=== PATIENT | male | born 1980 | race Caucasian/White ===

== ENCOUNTER → 2017-06-21 | Outpatient (CLI) | payer OTHER ==
[~2017-06-21] MED LIST: PRILOSEC10 M1 PO; SINCALIDE 3 MCG/VIAL INJ ONE
--- NOTE | 2017-06-21 11:47 | Diagnostic Imaging Report ---
PROCEDURE:GALLBLADDER ULTRASOUND COMPARISON:None. INDICATIONS:Abdomen Pain FINDINGS: Liver: 15.8 cm. Normal hepatic parenchymal echogenicity. No focal mass. Main portal vein: 1.3 cm. Hepatopedal flow. Gallbladder: No echogenic calculi, gallbladder wall thickening, or pericholecystic fluid. 0.3 cm echogenic focus in the anterior gallbladder wall without acoustic shadowing. 0.3 cm echogenic focus in the dependent gallbladder wall, best visualized in the decubitus position. Common Bile Duct: 3.0 mm. No echogenic filling defect. Sonographic Vasquez's sign: Negative. Right kidney: 12.4 cm. No solid or cystic mass, echogenic calculi, or hydronephrosis. Normal parenchymal echogenicity. The pancreas, inferior vena cava, and aorta were insufficiently visualized, secondary to overlying bowel gas. Ascites: None. CONCLUSION: 1. No acute sonographic abnormality. 2. Gallbladder polyps. Dictated by: Rafael Araya M.D. on 06/21/2017 at 11:48 Electronically approved by: Rafael Araya M.D. on 06/21/2017 at 11:48
--- NOTE | 2017-06-21 18:39 | Diagnostic Imaging Report ---
Hepatobiliary Scan with Gallbladder Ejection Fraction Clinical information: Abdominal pain. Report: Following intravenous administration of 6.4 millicuries of Tc-99m mebrofenin, dynamic images of the abdomen in the anterior projection were obtained through 30 minutes. Sincalide (CCK analog) 2.2 micrograms was administered intravenously over 30 minutes with additional imaging for determination of gallbladder ejection fraction. Perfusion to the liver is normal. Extraction of tracer from the blood pool by the liver parenchyma is normal. Tracer is seen promptly within the biliary tract. The gallbladder begins to fill by 10 minutes post-injection of tracer and fills adequately. Tracer is seen in the small bowel by 47 minutes. The gallbladder ejection fraction with administration of sincalide is 76% (normal greater than 40%). Impression: 1. Filling of the gallbladder excludes the diagnosis of acute cystic duct obstruction/acute cholecystitis. 2. Normal gallbladder ejection fraction of 76% does not support the clinical diagnosis of chronic cholecystitis/gallbladder dyskinesia. Signed by: Dr. Moisés Myers MD on 06/21/2017 6:35 PM
== END ==
LOC: US 08:22
PROVIDERS: ATTEND Internal Medicine Gastroenterology
DX: R10.9 Unspecified abdominal pain (principal)
CPT/HCPCS: 76705; 78227; A9537; J2805

== ENCOUNTER → 2018-02-04 | Day surgery (SDC) | payer OTHER ==
[~2018-02-04] MED LIST changes: +FENTANYL CITRATE/PF 100MCG/2 ML INJ ONE; +HYOSCYAMINE SULFATE 0.5 MG/ML INJ ONE; +KETAMINE HCL INJ 50 MG/ML 10 ML VIAL ONE; +MIDAZOLAM HCL 2 MG/2 ML VIAL ONE; +MULTI-VITAMIN1 EACH PO; +PANTOPRAZOLE SO40 MG PO; +PROPOFOL IV EMULSION 10 MG/ML 50 ML VIAL ONE; -SINCALIDE 3 MCG/VIAL INJ ONE; +ZOFRAN8 MG PO
--- OUTSIDE RECORDS SUMMARY | 2018-02-04 13:26 | XMS REPORT ---
Author Author [facility] Address Unknown Phone Unavailable Care Team Providers Care Industrial Eng Name Role Phone LACEY BENNETT Unavailable Unavailable Problems This patient has no known problems. Allergies, Adverse Reactions, Alerts This patient has no known allergies or adverse reactions. Medications This patient has no known medications. Results Test Description Test Time Test Comments Text Results Atomic Results Result Comments GALLBLADDER [place] [address] Patient Name: SAPPHIRE MILLER MR #: [id number] : 1980 Age/Sex: 36/M Req #: [id number] Adm Physician: Ordered by: LACEY BENNETT MD Report #: [id number] Location: US Room/Bed: Procedure: [id number] US/US GALLBLADDER Exam Date: 06/21/17 Exam Time: 908 REPORT STATUS: Signed PROCEDURE: GALLBLADDER ULTRASOUND COMPARISON: None. INDICATIONS: Abdomen Pain FINDINGS: Liver: 15.8 cm. Normal hepatic parenchymal echogenicity. No focal mass. Main portal vein: 1.3 cm. Hepatopedal flow. Gallbladder: No echogenic calculi, gallbladder wall thickening, or pericholecystic fluid. 0.3 cm echogenic focus in the anterior gallbladder wall without acoustic shadowing. 0.3 cm echogenic focus in the dependent gallbladder wall, best visualized in the decubitus position. Common Bile Duct: 3.0 mm. No echogenic filling defect. Sonographic Vasquez's sign: Negative. Right kidney: 12.4 cm. No solid or cystic mass, echogenic calculi, or hydronephrosis. Normal parenchymal echogenicity. The pancreas, inferior vena cava, and aorta were insufficiently visualized, secon micheal to overlying bowel gas. Ascites: None. CONCLUSION: 1. No acute sonographic abnormality. 2. Gallbladder polyps. Dictated by: Rossana Pope M.D. on 06/21/2017 at 11:48 Electronically approved by: Rossana Pope M.D. on 06/21/2017 at 11:48 Dictated By: ROSSANA POPE MD [id number] Transcribed By: ANIBAL on 06/21/17 1148 COPY TO: LACEY BENNETT MD HEPTOBILIARY W PHARM [place] [address] Patient Name: SAPPHIRE MILLER MR #: [id number] : 1980 Age/Sex: 36/M Req #: [id number] Adm Physician: Ordered by: LACEY BENNETT MD Report #: [id number] Location: Room/Bed: Procedure: [id number] NM/HEPTOBILIARY W PHARM Exam Date: 06/21/17 Exam Time: 1015 REPORT STATUS: Signed Hepatobiliary Scan with Gallbladder Ejection Fraction Clinical information: Abdominal pain. Report: Following intravenous administration of 6.4 millicuries of Tc-99m mebrofenin, dynamic images of the abdomen in the anterior projection were obtained through 30 minutes. Sincalide (CCK analog) 2.2 micrograms was administered intravenously over 30 minutes with additional imaging for determination of gallbladder ejection fraction. Perfusion to the liver is normal. Extraction of tracer from the blood pool by the liver parenchyma is normal. Tracer is seen promptly within the biliary tract. The gallbladder begins to fill by 10 minutes post-injection of tracer and fills adequately. Tracer is seen in the small bowel by 47 minutes. The gallbladder ejection fraction with administration of sincalide is 76% (normal greater than 40%). Impression: 1. Filling of the gallbladder excludes the diagnosis of acute cystic duct obstruction/acute cholecystitis. 2. Normal gallbladder ejection fraction of 76% does not support the clinical diagnosis of chronic cholecystitis/gallbladder dyskinesia. Signed by: Dr. Moisés Montiel MD on 06/21/2017 6:35 PM Dictated By: MOISÉS MONTIEL MD Electr onically Signed By: MOISÉS MONTIEL MD on 06/21/171834 Transcribed By: MARGARITO on 06/21/171834 COPY TO: LACEY BENNETT MD
[2018-02-04 17:05] VITALS: BP 111/78
--- NOTE | 2018-02-04 17:58 | Operative Report ---
DATE OF PROCEDURE: February 04, 2018 REFERRING PHYSICIAN: Dr. Ilan Meyer DO. PROCEDURES PERFORMED 1. Esophagogastroduodenoscopy with esophageal dilatation and pyloric channel dilatation. 2. Colonoscopy. INDICATIONS FOR ESOPHAGOGASTRODUODENOSCOPY: Dysphagia to solids, bloating. INDICATIONS FOR COLONOSCOPY: Change of bowel habits, new onset constipation. MEDICATION: Patient was done under MAC. Please see anesthesiologist's note. PROCEDURE: With the patient in left lateral decubitus position, a flexible fiberoptic Olympus gastroscope was introduced into the esophagus under direct visualization without any difficulty. There was some patchy erythema noted in distal esophagus. The scope was then advanced with ease into the stomach and the mucosa overlying the antrum and the body revealed some patchy erythema and [id number] edema and biopsies were obtained and sent to stain for H. pylori. The pylorus was stenotic and was dilated to size 20 mm per TTS balloon dilators. The scope was then advanced with ease all the way to the 2nd portion of the duodenum. The scope was then withdrawn slowly. Mucosa overlying the proximal 2nd portion and the duodenal bulb appeared to be within normal limits. The scope was then withdrawn back into the stomach and retroflexed and mucosa overlying the fundus and the cardia appeared to be within normal limits. The scope was then straightened out. The stomach was decompressed. The scope was subsequently withdrawn. Patient tolerated the procedure well. IMPRESSION 1. Mild distal esophagitis. 2. Esophageal stricture dilated to size 52-[place] Avalos. 3. Gastritis biopsied. Biopsies sent to stain for Helicobacter pylori. 4. Pyloric channel stricture dilated to size 20 mm per TTS balloon dilators. PLAN: Follow up histology. Increase Protonix to 40 mg 1 p.o. a.c. b.i.d. and q.h.s. PROCEDURE FOR COLONOSCOPY: The patient was then turned around and after adequate lubrication of the anal canal, a flexible fiberoptic Olympus colonoscope was inserted into the rectum with ease and advanced all way to the cecum. It was then withdrawn slowly and the mucosa overlying the cecum, ascending colon, transverse, descending, sigmoid, and rectum appeared to be within normal limits. The scope was then retroflexed into the distal rectum and moderate-size internal hemorrhoids were noted, none of which was actively bleeding. The scope was then straightened out. It was subsequently withdrawn. Patient tolerated the procedure well. IMPRESSION: Internal hemorrhoids, none actively bleeding. PLAN: Initiate high-fiber, low-fat diet. Initiate high-fiber supplement. Start VSL #3 one p.o. daily. Job#: [id number] VAS cc:ILAN MEYER DO
[2018-02-04 18:05] LABS: ALBUMIN 4.7 g/dL (3.5-5.0); BILIRUBIN,DIRECT 0.3 mg/dL (0.0-0.5)
== END | disposition home or self-care (01) ==
LOC: ENDO 13:24
PROVIDERS: ATTEND Internal Medicine Gastroenterology
DX: K22.2 Esophageal obstruction (principal); K29.70 Gastritis, unspecified, without bleeding; K31.1 Adult hypertrophic pyloric stenosis; K20.8 Other esophagitis; K59.00 Constipation, unspecified; K21.9 Gastro-esophageal reflux disease without esophagitis; K64.8 Other hemorrhoids; F41.9 Anxiety disorder, unspecified; Z68.30 Body mass index [BMI] 30.0-30.9, adult; Z87.891 Personal history of nicotine dependence
CPT/HCPCS: 36415; 43239; 43245; 43450; 45378; 80076; C1726; J1980; J2250

== ENCOUNTER → 2018-09-23 | Outpatient (CLI) | payer BC ==
[~2018-09-23] MED LIST changes: +DIATRIZOATE MEGL/DIATRIZOA SOD 30 ML BTL PO ONE; -FENTANYL CITRATE/PF 100MCG/2 ML INJ ONE; -HYOSCYAMINE SULFATE 0.5 MG/ML INJ ONE; +IOPAMIDOL 370 MG/ML 200 ML INFUS..BTL INJ ONE; -KETAMINE HCL INJ 50 MG/ML 10 ML VIAL ONE; -MIDAZOLAM HCL 2 MG/2 ML VIAL ONE; -PROPOFOL IV EMULSION 10 MG/ML 50 ML VIAL ONE; +SODIUM CHLORIDE 0.9% 50ML 50 ML ONE
--- NOTE | 2018-09-23 10:38 | Diagnostic Imaging Report ---
EXAM: CT Abdomen and Pelvis WITH intravenous contrast INDICATION: Abdominal pain COMPARISON: Right upper quadrant ultrasound of 06/21/2017 TECHNIQUE: Abdomen and pelvis were scanned utilizing a multidetector helical scanner from the lung base to the pubic symphysis after administration of IV contrast. Coronal and sagittal reformations were obtained. Routine protocol was performed. Scan was performed when during portal venous phase. IV CONTRAST: 100mL of Isovue 370 ORAL CONTRAST: Gastrografin COMPLICATIONS: None RADIATION DOSE: Total DLP: 700.7 mGy*cm Dose modulation, iterative reconstruction, and/or weight based adjustment of the mA/kV was utilized to reduce the radiation dose to as low as reasonably achievable. FINDINGS: LOWER THORAX: Mild bibasilar dependent subsegmental atelectasis. No focal consolidation. The heart is not enlarged. HEPATOBILIARY: No focal hepatic lesions. No biliary ductal dilatation. The gallbladder appears unremarkable. SPLEEN: No splenomegaly. PANCREAS: No focal masses or ductal dilatation. ADRENALS: No adrenal nodules. KIDNEYS/URETERS: No hydronephrosis. 2 cm cyst in the right kidney. 4 mm nonobstructing calculus at the right lower pole. PELVIC ORGANS/BLADDER: Coarse calcifications within the nonenlarged prostate. Bladder is decompressed. PERITONEUM / RETROPERITONEUM: No free air or fluid. LYMPH NODES: No lymphadenopathy. VESSELS: Unremarkable. GI TRACT: Sigmoid colonic diverticulosis with no CT evidence of diverticulitis. Normal bowel thickening or bowel distention. BONES AND SOFT TISSUES: Mild degenerative changes of the lower lumbar spine. Minimal retrolisthesis at L5-S1. IMPRESSION: 4 mm right lower pole nonobstructing renal calculus. Otherwise, no acute findings in the abdomen or pelvis. Signed by: Maegan Kruger MD on 09/23/2018 10:34 AM
== END ==
LOC: CT 08:36
PROVIDERS: ATTEND Internal Medicine Gastroenterology
DX: R10.9 Unspecified abdominal pain (principal)
CPT/HCPCS: 74177; Q9967

== ENCOUNTER → 2020-04-12 | Day surgery (SDC) | payer BC ==
[~2020-04-12] MED LIST changes: -DIATRIZOATE MEGL/DIATRIZOA SOD 30 ML BTL PO ONE; +DICYCLOMINE HCL20 MG PO; +FENTANYL CITRATE/PF 100MCG/2 ML INJ ONE; -IOPAMIDOL 370 MG/ML 200 ML INFUS..BTL INJ ONE; +LIDOCAINE HCL 2% LOCAL INJ 5 ML SDV VIAL INJ ONE; +MIDAZOLAM HCL 2 MG/2 ML VIAL ONE; +PANTOPRAZOLE 40 MG 10ML VIAL ONE; +PROPOFOL IV EMULSION 10 MG/ML 20 ML VIAL ONE; -SODIUM CHLORIDE 0.9% 50ML 50 ML ONE
[2020-04-12 08:55] VITALS: BP 124/81
== END | disposition home or self-care (01) ==
LOC: OR 05:47
PROVIDERS: ATTEND Internal Medicine Gastroenterology
DX: K22.2 Esophageal obstruction (principal); K31.7 Polyp of stomach and duodenum; K29.70 Gastritis, unspecified, without bleeding; K31.1 Adult hypertrophic pyloric stenosis; K22.8 Other specified diseases of esophagus; K21.9 Gastro-esophageal reflux disease without esophagitis; Z01.812 Encounter for preprocedural laboratory examination; Z20.822 Contact with and (suspected) exposure to COVID-19; Z87.891 Personal history of nicotine dependence
CPT/HCPCS: 43239; 43450; C9113; J2001; J2250; J2704; J3010; U0002

== ENCOUNTER 2020-08-29 05:27 | Observation (INO) | payer BC ==
[2020-08-28 09:33] LABS: BASOPHILS % 0.5 % (0.0-1.0); EOSINOPHILS # (AUTO) 0.1 (0.0-0.4); EOSINOPHILS % 0.9 % (0.0-6.0); HEMATOCRIT 46.5 % (38.2-49.6); HEMOGLOBIN 15.2 g/dL (14.0-18.0); LYMPHOCYTES # (AUTO) 2.2 (1.0-3.2); LYMPHOCYTES % 25.5 % (18.0-39.1); MEAN CORPUSCULAR HEMOGLOBIN 29.4 pg (28-32); MEAN CORPUSCULAR HGB CONC 32.7 g/dL (31-35); MEAN CORPUSCULAR VOLUME 89.9 fL (81-99); MONOCYTES # (AUTO) 1.2 (0.2-0.8); MONOCYTES % 13.7 % (4.4-11.3); NEUTROPHILS # (AUTO) 5.1 (2.1-6.9); NEUTROPHILS % 58.5 % (38.7-80.0); PLATELET COUNT 264 x10e3/uL (140-360); RED BLOOD COUNT 5.17 x10e6/uL (4.3-5.7); RED CELL DISTRIBUTION WIDTH 13.2 % (11.7-14.4)
[2020-08-28 10:11] LABS: ANION GAP 12.7 mmol/L (8-16); CALCIUM 9.1 mg/dL (8.4-10.2); CREATININE, SERUM 1.17 mg/dL (0.72-1.25); POTASSIUM 3.7 mmol/L (3.5-5.1)
[2020-08-28 10:18] LABS: INR 0.9; PROTHROMBIN TIME 12.7 seconds (11.9-14.5)
[2020-08-28 10:19] LABS: PARTIAL THROMBOPLASTIN TIME 29.6 seconds (23.8-35.5)
[~2020-08-29] VITALS: Ht 188 cm; Wt 106.1 kg
[~2020-08-29 05:27] MED LIST changes: +DICLOFENAC POTA50 MG PO; -FENTANYL CITRATE/PF 100MCG/2 ML INJ ONE; -LIDOCAINE HCL 2% LOCAL INJ 5 ML SDV VIAL INJ ONE; +MEDROL4 MG PO; -MIDAZOLAM HCL 2 MG/2 ML VIAL ONE; +NEURONTIN100 MG PO; -PANTOPRAZOLE 40 MG 10ML VIAL ONE; -PROPOFOL IV EMULSION 10 MG/ML 20 ML VIAL ONE; +ULTRAM50 MG PO
[2020-08-29] MEDS ORDERED: SODIUM CHLORIDE 0.9% 50ML 100 ML ONE (06:03)
[2020-08-29] MEDS ORDERED: THROMBIN FOR SOLN 5,000 UNIT VIAL ONE (06:47)
[2020-08-29] MEDS ORDERED: LIDOCAINE 1% W/EPINEPHRINE 20 ML VIAL ONE (06:47)
[2020-08-29] MEDS ORDERED: Vancomycin IV 1 GM VIAL ONE (07:25)
[2020-08-29] MEDS ORDERED: ACETAMINOPHEN 1000 MG/100 ML 100 ML IV ONE (08:18)
[2020-08-29] MEDS ORDERED: ACETAMINOPHEN 1000 MG/100 ML 0 ML IV ONE (08:18)
[2020-08-29] MEDS ORDERED: OXYCODONE/ACETAMINOPHEN 5-325 1 EACH TABLET PO PRN (09:00)
[2020-08-29] MEDS ORDERED: MAGNESIUM/ALUMINUM/SIMETHICONE 30 ML UDC PO PRN (09:00)
[2020-08-29] MEDS ORDERED: LACTATED RINGER'S 1,000 ML IV SCH (09:00)
[2020-08-29] MEDS ORDERED: DICYCLOMINE HCL 20 MG TAB PO SCH (09:00)
[2020-08-29] MEDS ORDERED: ONDANSETRON HCL INJ 2MG/ML 2ML 2 MG/ML VIAL IV PRN (09:00)
[2020-08-29] MEDS ORDERED: ZOLPIDEM TARTRATE 5 MG TAB PO PRN (09:00)
[2020-08-29] MEDS ORDERED: HYDROMORPHONE 2MG/ML 2 MG/ML ML IV PRN (09:00)
[2020-08-29] MEDS ORDERED: ACETAMINOPHEN 325 MG TAB PO PRN (09:00)
[2020-08-29] MEDS ORDERED: PROMETHAZINE HCL (IM) 25 MG/ML VIAL IM PRN (09:00)
[2020-08-29] MEDS ORDERED: HYDROCODON-ACE1 EA12 PO (09:02)
[2020-08-29] MEDS ORDERED: FENTANYL CITRATE/PF 100MCG/2 ML INJ ONE ×2 (09:35→12:09)
[2020-08-29] MEDS: CARISOPRODOL 350 MG TAB PO PRN ×2 (10:11→15:06)
[2020-08-29 10:45] VITALS: BP 127/86
[2020-08-29] MEDS ORDERED: MORPHINE SULFATE INJ 4 MG/ML INJ 1ML IM PRN (10:45)
[2020-08-29 10:50] VITALS: BP 127/86
[2020-08-29 11:30] VITALS: BP 136/93
[2020-08-29] MEDS ORDERED: MORPHINE SULFATE INJ 10 MG/ML ONE (12:09)
[2020-08-29] MEDS ORDERED: MIDAZOLAM HCL 2 MG/2 ML VIAL ONE (12:09)
[2020-08-29] MEDS ORDERED: GABAPENTIN 100 MG CAP PO SCH (13:00)
[2020-08-29] MEDS ORDERED: Cefazolin 1 GM in SODIUM CHLORIDE 0.9% 50ML 50 ML IV SCH (14:00)
[2020-08-29] MEDS ORDERED: DEXAMETHASONE SOD PHOS INJ 4 MG/ML VIAL ONE (16:30)
[2020-08-29] MEDS ORDERED: ROCURONIUM BROMIDE 10 MG/ML 5ML VIAL IV ONE (16:30)
[2020-08-29] MEDS ORDERED: ONDANSETRON HCL INJ 2MG/ML 2ML 2 MG/ML VIAL ONE (16:30)
[2020-08-29] MEDS ORDERED: POVIDONE IODINE 0.05% 0.05 % ML PO ONE (16:30)
[2020-08-29] MEDS ORDERED: SEVOFLURANE INHAL SOLN 250 ML PEN BTL ONE (16:30)
[2020-08-29] MEDS ORDERED: NEOSTIGMINE 1 MG/ML 10ML VIAL ONE (16:30)
[2020-08-29] MEDS ORDERED: GLYCOPYRROLATE INJ 0.2 MG/ML VIAL ONE (16:30)
[2020-08-29] MEDS ORDERED: PROPOFOL IV EMULSION 10 MG/ML 20 ML VIAL ONE (16:30)
[2020-08-29] MEDS ORDERED: LIDOCAINE HCL 2% LOCAL INJ 5 ML SDV VIAL INJ ONE (16:30)
[2020-08-30] MEDS ORDERED: PANTOPRAZOLE SOD 40 MG TABEC PO SCH (07:30)
== END 2020-08-29 15:00 | disposition home or self-care (01) ==
LOC: OR 05:27 → PACU V 08:59 → MED/SURG 10:00
PROVIDERS: ADMIT Neurological Surgery; ATTEND Neurological Surgery
DX: M50.123 Cervical disc disorder at C6-C7 level with radiculopathy (principal); Z01.810 Encounter for preprocedural cardiovascular examination; Z01.812 Encounter for preprocedural laboratory examination; Z01.818 Encounter for other preprocedural examination; Z20.822 Contact with and (suspected) exposure to COVID-19
CPT/HCPCS: 20931; 22551; 22845; 36415; 71046; 77003; 80048; 85025; 85610; 85730; 86850; 86900; 88304; 88311; 93005; C1713 ×2; C9359; G0378; J0131; J0690; J1100; J1170; J2001; J2270; J2405; J2704; J2710; J3010; J3370; U0002; J2250

== ENCOUNTER → 2020-09-27 | Outpatient (CLI) | payer BC ==
[~2020-09-27] MED LIST changes: +HYDROCODON-ACE1 EA12 PO
== END ==
LOC: RAD 08:08
PROVIDERS: ATTEND Neurological Surgery
DX: M50.20 Other cervical disc displacement, unspecified cervical region (principal); M43.22 Fusion of spine, cervical region
CPT/HCPCS: 72050

== ENCOUNTER → 2021-04-04 | Outpatient (CLI) | payer BC | LOC: RAD 07:46 | PROVIDERS: ATTEND Neurological Surgery | DX: M50.20 Other cervical disc displacement, unspecified cervical region (principal); M43.22 Fusion of spine, cervical region | CPT/HCPCS: 72050 ==

== ENCOUNTER → 2022-06-16 | Outpatient (CLI) | payer BC | LOC: US 09:56 | PROVIDERS: ATTEND Nurse Practitioner | DX: R10.11 Right upper quadrant pain (principal) | CPT/HCPCS: 76700 ==